=== PATIENT | female | born 1965 | race Caucasian/White ===

== ENCOUNTER 2021-01-10 04:18 | Emergency (ER) | payer OTHER ==
[2021-01-10] MEDS ORDERED: PRISTIQ ER25 MG PO (04:26)
[2021-01-10] MEDS ORDERED: NEURONTIN100 M1 PO (04:26)
[2021-01-10] MEDS ORDERED: INTUNIV2 MG PO (05:13)
[2021-01-10 05:14] LABS: BASO # 0.06 (0.02-0.10); EOS # 0.14 (0.04-0.40); EOS % 1.7 % (1.0-5.0); HEMATOCRIT 43.2 % (37.0-47.0); HEMOGLOBIN 14.5 g/dL (12.5-16.0); LYMPH# 4.18 (1.50-4.00); MEAN CELL VOLUME 93 fl (78-100); MEAN CORPUSCULAR HEMOGLOBIN 31 pg (27-31); MEAN CORPUSCULAR HGB CONC 34 g/dL (33-37); MEAN PLATELET VOLUME 10.5 fl (7.4-10.4); MONO # 0.59 (0.20-0.80); PLATELET COUNT 251 K/mm3 (130-400); RED BLOOD COUNT 4.65 M/mm3 (4.10-5.30); RED CELL DISTRIBUTION WIDTH 12.6 % (11.5-14.5); WHITE BLOOD COUNT 8.1 K/mm3 (4.8-10.8)
[2021-01-10 05:30] LABS: ALBUMIN 4.4 g/dL (3.5-5.0); POTASSIUM 4.5 mmol/L (3.5-5.1)
[2021-01-10 05:32] LABS: CALCIUM 9.5 mg/dL (8.3-10.5)
[2021-01-10 05:33] LABS: TOTAL PROTEIN 6.6 g/dL (6.4-8.3)
[2021-01-10 05:35] LABS: TOTAL BILIRUBIN 0.6 mg/dL (0.2-1.2)
[2021-01-10 10:41] VITALS: BP 101/55
== END 2021-01-10 10:47 | disposition home or self-care (01) ==
LOC: ED 04:18
PROVIDERS: Family Medicine
DX: T50.905A Adverse effect of unspecified drugs, medicaments and biological substances, initial encounter (principal); E86.0 Dehydration; R55 Syncope and collapse; R00.1 Bradycardia, unspecified; I95.1 Orthostatic hypotension; F41.9 Anxiety disorder, unspecified; F32.9 Major depressive disorder, single episode, unspecified
CPT/HCPCS: J7030